=== PATIENT | female | born 1955 | race Two or more races ===

== ENCOUNTER 2016-10-15 23:25 | Inpatient (IN) | payer MEDICAID ==
[~2016-10-15] VITALS: Ht 162.6 cm; Wt 81.6 kg
[2016-10-16 00:22] LABS: Basophils # (auto) 0 uL; Basophils % (auto) 0.3 % (0.0-2.0); Eosinophils # (auto) 0 uL; Eosinophils % (auto) 0.2 % (0.0-7.0); Hematocrit 37.7 % (36.0-46.0); Hemoglobin 12.9 g/dL (12.2-16.2); Lymphocytes # (auto) 1.5 uL; Lymphocytes % (auto) 9.9 % (10.0-50.0); Mean Corpuscular Hemoglobin 30.6 pg (28.0-32.0); Mean Corpuscular Hgb Conc. 34.3 g/dL (32.0-36.0); Mean Corpuscular Volume 89.2 fL (80.0-100.0); Mean Platelet Volume 6.8 fL (7.4-10.4); Monocytes # (auto) 1.5 uL; Monocytes % (auto) 9.8 % (0.0-12.0); Neutrophils # (auto) 11.8 uL; Neutrophils % (auto) 79.8 % (37.0-80.0); Platelet Count (auto) 411 10^3/uL (140-450); Red Cell Distribution Width 13.4 % (11.6-16.0); White Blood Cell 14.8 10^3/uL (4.4-10.8)
[2016-10-16 00:44] LABS: Albumin 3.2 g/dL (3.4-5.0); Anion Gap 13 (5-15); Aspartate Aminotransferase 88 U/L (15-37); BUN/Creatinine Ratio 10.1; Blood Urea Nitrogen 9 mg/dL (7-18); Calcium 8.4 mg/dL (8.5-10.1); Carbon Dioxide 20 mmol/L (21-32); Chloride 100 mmol/L (98-107); GFR African American 83 mL/min; GFR Non-African American 68 mL/min; Glucose 184 mg/dL (74-106); Potassium 3.6 mmol/L (3.5-5.1); Sodium 133 mmol/L (136-145)
[2016-10-16 00:48] LABS: Alkaline Phosphatase 125 U/L (45-117); Bilirubin, Total 0.8 mg/dL (0.2-1.0); Total Protein 8.3 g/dL (6.4-8.2)
[2016-10-16] MEDS ORDERED: PROMETHAZINE W/CODEINE 5 ML ORAL SYRUP PO ONE (01:00)
[2016-10-16] MEDS ORDERED: LEVOFLOXACIN 750MG 150 ML IV ONE (01:00)
[2016-10-16 02:07] LABS: Urine Bilirubin Negative (Negative); Urine Color Yellow (Yellow); Urine Glucose Normal (Normal); Urine Mucus FEW (None Seen); Urine Nitrite Negative (Negative); Urine RBC 6 /hpf (0 - 4); Urine Squamous Epithelial Cell FEW /hpf (<5); Urine Urobilinogen Normal (Negative); Urine pH 6.5 (5.0-8.0)
[2016-10-16 02:11] LABS: Urine Blood 1+ /uL (Negative); Urine Ketone 1+ (Negative)
[2016-10-16] MEDS ORDERED: MORPHINE SULF INJ 2 MG/ML SYRINGE 1ML IV PRN (07:15)
[2016-10-16] MEDS ORDERED: NITROGLYCERIN 0.4 MG SL TAB SL PRN (07:15)
[2016-10-16] MEDS ORDERED: DEXTROSE (50%) 50ML SYRG IV PRN (07:30)
[2016-10-16] MEDS ORDERED: cefTRIAXone 1GM/50ML D5W 50 ML IV SCH (09:00)
[2016-10-16] MEDS: ACCU-CHEK COMFORT CURVE STRIP VI SCH ×2 (11:20→17:32)
[2016-10-16] MEDS: InsuLIN REG 1unit/0.01ml Soln (100units/ml) SC SCH ×2 (11:21→17:32)
[2016-10-16 13:00] VITALS: BP 120/69
[2016-10-16] MEDS ORDERED: guaiFENesin-DEXTROMETHORPHAN 5ML SYR PO PRN (16:00)
[2016-10-16] MEDS ORDERED: IPRATROPIUM BROM 0.5 MG/2.5ML INH SOL NEB PRN (16:30)
[2016-10-16] MEDS ORDERED: ALBUTEROL SULF 2.5 MG/0.5ML(0.5%) NEB SOLN NEB PRN (16:30)
[2016-10-16] MEDS ORDERED: LEVO500T3 PO (16:34)
[2016-10-16] MEDS ORDERED: ALBUAER3 IN (16:34)
[2016-10-16] MEDS ORDERED: GUA5DMLQ PO (16:34)
[2016-10-16 17:00] VITALS: BP 156/80
[2016-10-17] MEDS ORDERED: LEVOFLOXACIN 500MG 100 ML IV SCH (01:00)
== END 2016-10-16 18:59 | disposition home health service (06) | DRG 720 ==
LOC: ER 23:26 → OVERFLOW 23:27 → TELE-E-ADS 10-16 07:40 → WEST WING 10-16 09:16
PROVIDERS: ADMIT Family Medicine; ATTEND Family Medicine
DX: A41.9 Sepsis, unspecified organism (principal); J18.9 Pneumonia, unspecified organism; I10 Essential (primary) hypertension; E11.9 Type 2 diabetes mellitus without complications; E78.00 Pure hypercholesterolemia, unspecified; E78.5 Hyperlipidemia, unspecified; E86.0 Dehydration
CPT/HCPCS: 36415; 71010; 80053; 81001; 82962; 83036; 83605; 84484; 85025; 87040; 93005; 96365; J0696; J1956

== ENCOUNTER 2018-10-12 02:34 | Emergency (ER) | payer BC ==
[~2018-10-12] VITALS: Ht 162.6 cm; Wt 87.5 kg
[~2018-10-12 02:34] MED LIST: ALBUAER3 IN; DEXT1SYP9 PO; LEVO500T21 PO
[2018-10-12] MEDS ORDERED: cloNIDine HCL 0.1 MG TAB PO ONE (03:00)
[2018-10-12 04:09] LABS: Basophils # (auto) 0 uL; Basophils % (auto) 0.4 % (0.0-2.0); Eosinophils # (auto) 0.3 uL; Eosinophils % (auto) 3.9 % (0.0-7.0); Hematocrit 38.9 % (36.0-46.0); Hemoglobin 13.3 g/dL (12.2-16.2); Lymphocytes # (auto) 2.4 uL; Lymphocytes % (auto) 36.5 % (10.0-50.0); Mean Corpuscular Hemoglobin 31.1 pg (28.0-32.0); Mean Corpuscular Hgb Conc. 34.1 g/dL (32.0-36.0); Mean Corpuscular Volume 91.3 fL (80.0-100.0); Monocytes # (auto) 0.5 uL; Monocytes % (auto) 6.9 % (0.0-12.0); Neutrophils # (auto) 3.5 uL; Neutrophils % (auto) 52.3 % (37.0-80.0); Platelet Count (auto) 297 10^3/uL (140-450); Red Blood Cells 4.26 10^6/uL (4.0-5.20); White Blood Cell 6.6 10^3/uL (4.4-10.8)
[2018-10-12 04:16] LABS: Urine Bacteria NONE SEEN /hpf (None Seen); Urine Blood Negative /uL (Negative); Urine Specific Gravity 1.003 (1.001-1.035); Urine WBC <1 /hpf (0 - 5)
[2018-10-12 04:27] LABS: Alanine Aminotransferase 28 U/L (13-56); Albumin 4.1 g/dL (3.4-5.0); Anion Gap 4 (5-15); Aspartate Aminotransferase 41 U/L (15-37); BUN/Creatinine Ratio 16.5; Blood Urea Nitrogen 17 mg/dL (7-18); Calcium 8.8 mg/dL (8.5-10.1); Carbon Dioxide 29 mmol/L (21-32); Chloride 106 mmol/L (98-107); GFR African American 69 mL/min; GFR Non-African American 57 mL/min; Glucose 128 mg/dL (74-106); Magnesium 2.6 mg/dL (1.6-2.6); Potassium 4.5 mmol/L (3.5-5.1); Sodium 139 mmol/L (136-145)
[2018-10-12 04:32] LABS: Alkaline Phosphatase 60 U/L (45-117); Bilirubin, Total 0.6 mg/dL (0.2-1.0); Total Protein 8.1 g/dL (6.4-8.2)
[2018-10-12 06:39] LABS: INR 0.96 (0.9-1.15); Partial Thromboplastin Time 30.3 sec (23.78-33.04); Prothrombin Time 10.3 sec (9.27-12.13)
[2018-10-12 09:25] LABS: Calcium 8.6 mg/dL (8.5-10.1); Chloride 105 mmol/L (98-107); Potassium 4.5 mmol/L (3.5-5.1); Sodium 139 mmol/L (136-145)
[2018-10-12 09:30] LABS: Basophils # (auto) 0 uL; Basophils % (auto) 0.5 % (0.0-2.0); Eosinophils # (auto) 0.1 uL; Eosinophils % (auto) 2.5 % (0.0-7.0); Hematocrit 38.9 % (36.0-46.0); Hemoglobin 13.4 g/dL (12.2-16.2); Lymphocytes # (auto) 1.6 uL; Lymphocytes % (auto) 29.5 % (10.0-50.0); Mean Corpuscular Hemoglobin 31.5 pg (28.0-32.0); Mean Corpuscular Hgb Conc. 34.4 g/dL (32.0-36.0); Mean Corpuscular Volume 91.6 fL (80.0-100.0); Monocytes # (auto) 0.3 uL; Neutrophils # (auto) 3.4 uL; Neutrophils % (auto) 61.5 % (37.0-80.0); Platelet Count (auto) 307 10^3/uL (140-450); Red Blood Cells 4.25 10^6/uL (4.0-5.20); Red Cell Distribution Width 14.4 % (11.8-14.3); White Blood Cell 5.5 10^3/uL (4.4-10.8)
[2018-10-12 09:33] LABS: Alanine Aminotransferase 28 U/L (13-56); Alkaline Phosphatase 60 U/L (45-117); Anion Gap 5 (5-15); Aspartate Aminotransferase 43 U/L (15-37); BUN/Creatinine Ratio 19.4; Bilirubin, Total 0.8 mg/dL (0.2-1.0); Blood Urea Nitrogen 19 mg/dL (7-18); Carbon Dioxide 29 mmol/L (21-32); GFR African American 73 mL/min; GFR Non-African American 61 mL/min; Glucose 106 mg/dL (74-106); Total Protein 8.1 g/dL (6.4-8.2)
[2018-10-12 09:40] LABS: INR 0.96 (0.9-1.15); Partial Thromboplastin Time 30.9 sec (23.78-33.04); Prothrombin Time 10.3 sec (9.27-12.13)
[2018-10-12 11:39] VITALS: BP 114/62
== END 2018-10-12 12:19 | disposition home or self-care (01) ==
LOC: ER 02:42
DX: I10 Essential (primary) hypertension (principal); E11.9 Type 2 diabetes mellitus without complications; E78.5 Hyperlipidemia, unspecified; Z90.49 Acquired absence of other specified parts of digestive tract; Z90.89 Acquired absence of other organs
CPT/HCPCS: 36415; 70450; 71046; 80053; 81001; 82962; 83735; 83880; 84484; 85025; 85610; 85730; 93005